=== PATIENT | male | born 1975 | race Caucasian/White ===

== ENCOUNTER 2018-12-06 14:50 | Inpatient (IN) ==
[2018-12-06] MEDS ORDERED: NS 1,000 ML IV ONE ×2 (15:24→16:08)
[2018-12-06 15:29] LABS: BASO# 0.04 X1000 (0.0-0.2); BASO% 0.3 % (0.0-0.8); EOS# 0.05 X1000 (0.0-0.7); EOS% 0.4 % (0.0-10.0); HEMATOCRIT 44.1 % (42.0-52.0); HEMOGLOBIN 15.4 g/dL (14.0-18.0); IMM GRAN# 0.02 X1000 (0.0-0.04); IMM GRAN% 0.2 % (0.0-0.5); LYMPH# 0.79 X1000 (1.2-3.4); LYMPH% 6.6 % (20.5-51.1); MCH 30.6 PG (27-31); MCHC 34.9 g/dL (33-37); MCV 87.5 FL (81-99); MONO# 1.58 X1000 (0.11-0.59); MONO% 13.2 % (1.7-9.3); MPV 9.9 FL (7.4-10.4); NEUT# 9.51 X1000 (1.4-6.5); NEUT% 79.3 % (42.2-75.2); PLT 288 X1000 (130-400); RBC 5.04 XMIL (4.7-6.1); RDW 12.9 % (11.5-14.5); WBC 11.99 X1000 (4.8-10.8)
--- NOTE | 2018-12-06 15:42 | Diag Imaging Result Doc PS360 ---
EXAM: CHEST-2 VIEWS HISTORY: fever TECHNIQUE: Chest two views COMPARISON: 04/01/2014 FINDINGS: The lungs are well expanded. The heart is not enlarged. The vessels are not distended. There are no infiltrates. No pleural effusions. Questionable lung nodules in the upper right lung and lower lungs. These may simply be artifacts. IMPRESSION: Questionable lung nodules. A CT may be beneficial. Electronically signed by Hardeep Barrientos 12/06/2018 3:40 PM
[2018-12-06 15:43] LABS: ALBUMIN 3.5 g/dL (3.5-5.0); CREATININE 2.2 mg/dL (0.7-1.2); POTASSIUM 5.7 mmol/L (3.5-5.1); TOTAL BILIRUBIN 0.3 mg/dL (0.20-1.00)
[2018-12-06 15:56] LABS: BE -0.8 mmoll (-3.0-3.0); BLOOD TYPE ARTERIAL; HCO3-(ACT) 24.2 mmoll (20.0-26.0); METHB 1.1 % (0.0-1.5); O2(CT) 20.6 mL/dL (15.0-23.0); O2HB 93.3 % (95.0-99.0); PCO2(98.6) 37 mmHg (35-45); PO2(98.6) 79 mmHg (60-100); SAMPLE BLOOD; SAO2 97.1 % (95.0-100.0); THB 15.7 g/dL (11.5-17.4); pH(98.6) 7.41 (7.35-7.45)
[2018-12-06 16:04] LABS: ALLEN TEST YES; MODALITY ROOM AIR
[2018-12-06 16:08] LABS: BILIRUBIN URINE NEGATIVE (NEGATIVE); BLOOD URINE NEGATIVE (NEGATIVE); CLARITY CLEAR (CLEAR); COLOR YELLOW; KETONE URINE 1+(Small) mg/dL (NEGATIVE); LEUKOCYTES URINE NEGATIVE (NEGATIVE); NITRITE URINE NEGATIVE (NEGATIVE); PROTEIN URINE NEGATIVE (NEGATIVE); SP GRAVITY URINE 1.005; UROBILINOGEN URINE NORMAL
[2018-12-06] MEDS ORDERED: ROCEPHIN 1 GM in NS 50 ML IV ONE (16:10)
[2018-12-06 16:14] LABS: INFLUENZA A NEGATIVE (NEGATIVE); INFLUENZA B NEGATIVE (NEGATIVE)
[2018-12-06 16:15] LABS: URINE BACTERIA NEGATIVE /HFP; URINE EPITHELIAL CELLS <10 /HPF (<10); URINE RBC <10 /HPF (<10); URINE SOURCE CLEAN CATCH; URINE WBC <10 /HPF (<10)
[2018-12-06] MEDS ORDERED: TYLENOL PO ONE (16:15)
[2018-12-06 17:07] LABS: MAGNESIUM 1.9 mg/dL (1.5-2.7)
[2018-12-06 17:08] LABS: AGAP 16; ALBUMIN 3.7 g/dL (3.5-5.0); ALKALINE PHOSPHATASE 137 U/L (32-122); BUN 13 mg/dL (8-22); CALCIUM 8.7 mg/dL (8.8-10.2); CHLORIDE 90 mmol/L (98-107); COSMO 284; ESTIMATED GFR > 60; GOT 27 U/L (10-34); GPT 42 U/L (10-44); POTASSIUM 4.7 mmol/L (3.5-5.1); SODIUM 131 mmol/L (136-145); TCO2 26 mmol/L (25-35); TOTAL PROTEIN 5.9 g/dL (6.3-8.3)
[2018-12-06 17:11] LABS: GLUCOSE 478 mg/dL (70-104)
[2018-12-06] MEDS ORDERED: HUMULIN R IV ONE (17:13)
[2018-12-06] MEDS ORDERED: HUMULIN R (PARKWAY) ONE (17:15)
[2018-12-06 17:16] LABS: INR 0.83; PROTIME 11.8 Seconds (11.0-16.0)
[2018-12-06 17:17] LABS: PTT 28.7 Seconds (22.3-41.8)
--- NOTE | 2018-12-06 17:49 | PROVIDER DOCUMENTATION ---
This chart was entered by Mara Anderson Scribe, acting as scribe for Vern Castellano CRNP. HPI-General Adult - General Chief Complaint: High Blood Sugar Stated Complaint: HYPERGLYCEMIA Time Seen by Provider: 12/06/18 15:23 Source: patient Allergies/Adverse Reactions: Patient Allergies Allergy/AdvReac Type Severity Reaction Status Date / Time No Known Allergies Allergy Verified 12/06/18 16:49 Home Medications: Home Medication List Medication Instructions Recorded Confirmed Last Taken Type Citalopram [Celexa] 40 mg PO DAILY 04/01/14 12/06/18 03/31/14 History Insulin Novolog 70/30 [Novolog Mix 30 unit SUBQ BID 12/06/18 12/06/18 Unknown History 70/30] Insulin Regular, Human [Novolin R] 100 unit IJ DIRECTED 12/06/18 12/06/18 Unknown History - History of Present Illness -Gen Adult Nature of Presenting Problems: Pt is 43/m presenting to ED w/ high blood sugar. Pt is diabetic and sts that he hasn't checked his sugars today. He woke up today w/ nausea, body aches, fever, frequency Location of Pain/Injury: reports: head, generalized Pain Radiation: reports: no radiation Quality of Pain: reports: aching Severity: reports: mild Onset/Duration: reports: this morning Timing: reports: still present Context/Activities at Onset: reports: none Modifying Factors: improves with: nothing Associated Symptoms: reports: fever/chills, nausea. denies: cough, fatigue, shortness of breath, vomiting Similar Symptoms Previously?: No Recently seen or treated by another doctor?: No - Diabetes Related Context Context: reports: high blood sugar (500 in triage) Review of Systems - Adult - REVIEW OF SYSTEMS - ADULT Constitutional: reports: fever (100.1) Eyes: reports: no symptoms reported. denies: blurred vision, double vision, eye pain Ears, Nose, Mouth & Throat: reports: no symptoms reported. denies: ear pain, throat pain Cardiovascular: reports: no symptoms reported. denies: chest pain, edema Respiratory: reports: no symptoms reported, cough. denies: shortness of breath , wheezing Gastrointestinal: reports: no symptoms reported, nausea. denies: abdominal pain Genitourinary: reports: no symptoms reported Musculoskeletal: reports: no symptoms reported Integumentary: reports: no symptoms reported Neurological: reports: headache/migraines. denies: dizziness/vertigo Psychiatric: reports: no symptoms reported Endocrine: reports: no symptoms reported Hematologic/Lymphatic: reports: no symptoms reported Allergic/Immunologic: reports: no symptoms reported All Other Systems: Reviewed and Negative Past History - Adult - PAST MEDICAL HISTORY-ADULT Review of Records: reports: Old Records Reviewed, Nursing Assessment Review, Medications Reviewed, Social history reviewed & non-contributory. Major Childhood Illnesses: reports: denies history Cardiovascular: reports: denies history Respiratory: reports: denies history Gastrointestinal: reports: denies history Obstetrical/Gynecological: reports: denies history Genitourinary: reports: denies history Musculoskeletal: reports: denies history Neurological: reports: denies history Psychiatric: reports: anxiety Endocrine/Immune: reports: Diabetes Other Conditions: reports: denies history - PRIOR SURGERIES/PROCEDURES Surgical/Procedure History: reports: none - PRIOR HOSPITALIZATIONS Prior Hospitalizations: reports: none - IMMUNIZATION STATUS Childhood Immunizations: See Nurse Assessment Flu Vaccine: See Nurse Assessment - FAMILY HISTORY Family History: reviewed, not pertinent - SOCIAL HISTORY Smoking: cigarettes, greater than 1 pack/day Substance Use: none presently/history of abuse, amphetamines (meth, 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) Alcohol Use Frequency: never Living Situation: family Physical Exam-General - PHYSICAL EXAM-ADULT Initial Vital Signs Reviewed: Yes - CONSTITUTIONAL General Appearance: appears well, alert, no apparent distress, mild distress - EYES Eyes: PERRL/EOMI - HEAD, EARS, NOSE, MOUTH & THROAT HENMT: normocephalic/atraumatic, moist mucous membranes, normal ENT inspection, TMs normal, pharynx normal - NECK Neck: non-tender, full range of motion, supple, normal inspection - RESPIRATORY Respiratory: chest non-tender, lungs clear, normal breath sounds - CARDIOVASCULAR Cardiovascular: regular rate, rhythm - GASTROINTESTINAL (ABDOMEN) Abdominal Exam: normal bowel sounds, non tender, soft - LYMPHATIC Lymphatic: no adenopathy - MUSCULOSKELETAL Back Exam: normal inspection, no CVA tenderness, no vertebral tenderness Extremity: normal range of motion, non-tender, normal gait, normal inspection - SKIN Integumentary: normal color, warm/dry - NEUROLOGIC Neurologic: grossly normal - PSYCHIATRIC Psych/Mental Status: normal mood/affect, normal thought content, normal thought process, oriented x 3 Progress - PLAN OF CARE/RESULTS Progress/Plan/Lab Results: Vital Signs - 8 hr 12/06/18 15:00 Temperature 100.0 F H Pulse Rate 116 H Respiratory Rate 20 Blood Pressure 142/93 O2 Sat by Pulse Oximetry 96 Laboratory Results - last 24 hr 12/06/18 12/06/18 12/06/18 15:04 15:06 15:20 WBC 11.99 H RBC 5.04 Hgb 15.4 Hct 44.1 MCV 87.5 MCH 30.6 MCHC 34.9 RDW Std Deviation 12.9 Plt Count 288 MPV 9.9 Immature Gran % (Auto) 0.2 Neut % (Auto) 79.3 H Lymph % (Auto) 6.6 L [place] % (Auto) 13.2 H Eos % (Auto) 0.4 Baso % (Auto) 0.3 Immature Gran # (Auto) 0.02 Neut # (Auto) 9.51 H Lymph # (Auto) 0.79 L [place] # (Auto) 1.58 H Eos # (Auto) 0.05 Baso # (Auto) 0.04 Specimen Type Sample Site pH pCO2 pO2 HCO3 Base Excess Oxyhemoglobin ABG O2 Sat (Calculated) ABG O2 Saturation ABG Carboxyhemoglobin ABG Methemoglobin Mitchel Test A-a O2 Difference Total Hemoglobin Lactate Blood Gas Modality FiO2 % Sodium Potassium Chloride Carbon Dioxide Anion Gap BUN Creatinine Estimated GFR/1.73 m2 BUN/Creatinine Ratio Glucose POC Glucose 500 H D Calculated Osmolality Calcium Total Bilirubin AST ALT Alkaline Phosphatase Total Protein Albumin Globulin Albumin/Globulin Ratio Urine Color YELLOW Urine Clarity CLEAR Urine pH 7.0 Ur Specific [place] 1.005 Urine Protein NEGATIVE Urine Ketones 1+(Small) A Urine Blood NEGATIVE Urine Nitrite NEGATIVE Urine Bilirubin NEGATIVE Urine Urobilinogen NORMAL Urine WBC NEGATIVE Urine Glucose 3+(500 mg/dL) A 12/06/18 12/06/18 15:20 15:44 WBC RBC Hgb Hct MCV MCH MCHC RDW Std Deviation Plt Count MPV Immature Gran % (Auto) Neut % (Auto) Lymph % (Auto) [place] % (Auto) Eos % (Auto) Baso % (Auto) Immature Gran # (Auto) Neut # (Auto) Lymph # (Auto) [place] # (Auto) Eos # (Auto) Baso # (Auto) Specimen Type ARTERIAL Sample Site L RADIAL pH 7.41 pCO2 37 pO2 79 HCO3 24.2 Base Excess -0.8 Oxyhemoglobin 93.3 L ABG O2 Sat (Calculated) 20.6 ABG O2 Saturation 97.1 ABG Carboxyhemoglobin 2.80 H ABG Methemoglobin 1.1 Mitchel Test YES A-a O2 Difference 24.0 Total Hemoglobin 15.7 Lactate 5.40 H* Blood Gas Modality ROOM AIR FiO2 % 21.0 Sodium 135 L Potassium 5.7 H Chloride 102 Carbon Dioxide 21 L Anion Gap 12 BUN 50 H Creatinine 2.2 H Estimated GFR/1.73 m2 33 BUN/Creatinine Ratio 23 Glucose 109 H POC Glucose Calculated Osmolality 284 Calcium 9.0 Total Bilirubin 0.30 AST 21 ALT 17 Alkaline Phosphatase 83 Total Protein 7.0 Albumin 3.5 Globulin 4.0 Albumin/Globulin Ratio 1.0 Urine Color Urine Clarity Urine pH Ur Specific [place] Urine Protein Urine Ketones Urine Blood Urine Nitrite Urine Bilirubin Urine Urobilinogen Urine WBC Urine Glucose Orders Category Date Time Status CHEST-2 VIEWS [RAD] Stat Exams 12/06/18 15:24 Completed ABG [RESP] Routine Lab 12/06/18 15:44 Completed CBC WITH DIFF [HEME] Stat Lab 12/06/18 15:20 Completed CMP [COMPREHENSIVE METABOLIC PANEL] [CHEM] Stat Lab 12/06/18 15:55 Uncollected COMPREHENSIVE METABOLIC PANEL [CHEM] Stat Lab 12/06/18 15:20 Completed Flu [INFLUENZA SCREEN PL] Stat Lab 12/06/18 15:05 Received UA NIMS W/REFLEX CULT PL [URINALYSIS] Stat Lab 12/06/18 15:06 Results 0.9% Sodium Chloride Inj [Ns] 1,000 ml Med 12/06/18 15:24 Active IV 999 mls/hr 0.9% Sodium Chloride Inj [Ns] 1,000 ml Med 12/06/18 16:08 Active IV 999 mls/hr EKG [EKG] Stat Ther 12/06/18 15:28 Ordered Result Diagrams: 12/06/18 15:20 12/06/18 16:30 - REASSESSMENT Reassessment #1 Time Reassessed: 15:55 (Initial FSBS > 500 and lab glucose of 109 do not match. Will reorder chemistry to confirm glucose) Reassessment #2 Time Reassessed: 17:40 (updated pt and made aware of admission status. Pt agrees with admission.) - EKG 1 Time of EKG reading by physician:: 17:38 EKG Read and Signed by:: Fernando Cortez EKG Interpretation (*Must complete 3 of following elements*): Normal Rate: 104 Rhythm: Sinus tachycardia - CONSULTS/PCP/HOSPITALIST Notification #1 *Consult/PCP/Hospitalist*: Dr Lawton, hospitalist Time Discussed: 17:41 (possible admission) Consult Disposition: Will see in ED, Admit Departure - Departure Date of Disposition Decision: 12/06/18 Time of Disposition Decision: 17:23 DIAGNOSIS: Hyperglycemia Sepsis Qualifiers: Sepsis type: sepsis due to unspecified organism Qualified Code(s): A41.9 - Sepsis, unspecified organism Disposition: ADMITTED INPATIENT 09 Certified Medical Emergency: Emergent Condition: Fair Referrals and Follow-Ups: Devon Suarez DO [Primary Care Provider] - - Critical Care Note This patient required my direct & personal management of CC.: No Attestation - Physician/ DEION Attestation Patient care was provided by Advanced Practice Provider:: Yes Advanced Practice Provider:: Vern Castellano Advanced Practice Provider documentation review:: The Mid-level provider documentation, treatment plan and medical decision making was reviewed by the physician who agrees with all treatment and medical decision making by the MLP. The physician spent face to face time with patient:: No Advanced Practice Provider documentation review:: Supervising physician onsite and consulted in the evaluation and care of this patient. The physician did not have a face to face encounter with the patient. This chart was documented by the indicated scribe, (Mara Anderson Scribe) and accurately reflects the services I performed and decisions made by me, Vern Castellano CRNP, as attested by the provider's signature.
--- NOTE | 2018-12-06 17:59 | EKG Report ---
Test Performed on : 12/06/2018 5:38:13 PM Test Reason : CP Blood Pressure : / mmHG Vent. Rate : 104 BPM Atrial Rate : 104 BPM P-R Int : 130 ms QRS Dur : 080 ms QT Int : 308 ms P-R-T Axes : 070 -15 048 degrees QTc Int : 405 ms Sinus tachycardia. Otherwise normal ECG When compared with ECG of 01-APR-2014 04:39, No significant change was found Unconfirmed Result
[2018-12-06] MEDS ORDERED: ZOFRAN IV PRN (19:13)
[2018-12-06] MEDS ORDERED: NICODERM PATCH TD PRN (20:51)
[2018-12-06] MEDS: ROBITUSSIN-DM PO PRN (21:27)
[2018-12-06] MEDS: HUMALOG (PARKWAY) SUBQ SCH (22:23)
--- NOTE | 2018-12-06 23:44 | HISTORY AND PHYSICAL ---
ADDENDUM: Patient seen and examined by myself. Full note dictated and discussed with nurse practitioner. The patient is a 43-year-old male who presented to the ER with a fever and an elevated blood sugar. We will admit him to the hospital, treat in the usual fashion, place on sliding scale insulin, and will follow. cc: Duncan Landin MD
--- NOTE | 2018-12-07 00:11 | HISTORY AND PHYSICAL ---
CHIEF COMPLAINT: Elevated blood sugar. HISTORY OF PRESENT ILLNESS: The patient is a 43-year-old male who has a known history of diabetes, currently takes NovoLog. He states on sliding scale at home. States he has not checked his blood sugars in a day or 2. He awoke this morning, did not feel well. Had nausea, vomiting, abdominal pain, myalgias, and increased urinary frequency. Checked his blood sugar, and it was elevated. ALLERGIES: No known drug allergies. MEDICATIONS: Celexa 40, NovoLog 70/30, 30 units twice a day, Humulin R, on a sliding scale. REVIEW OF SYSTEMS: The patient notes that he had a low-grade fever at 100.1. Denies any headaches, change in vision, focalized numbness, tingling, or weakness. Denies any dysuria, does have urinary frequency. Denies hesitancy. Has some nausea, but denies any real abdominal pain, constipation, melena, hematochezia. Does state that he has a cough, but denies any current shortness of breath, wheezing, or dyspnea on exertion. PAST MEDICAL HISTORY: Diabetes, currently insulin-requiring. FAMILY HISTORY: Positive for diabetes. SOCIAL HISTORY: The patient smokes a pack a day. 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 PHYSICAL EXAMINATION: VITAL SIGNS: Temperature 100, pulse 116, respiratory rate 20, blood pressure 142/93, saturation 96% on room air. GENERAL: Patient is pleasant to talk with. He is currently in no respiratory distress. HEENT: Normocephalic. NECK: Supple. CARDIOVASCULAR: Regular rate. No murmurs. CHEST: Clear, nonlabored. ABDOMEN: Soft. Diffusely mildly tender. EXTREMITIES: Moves all extremities. NEUROLOGIC: No focal neurological changes. ASSESSMENT: 1. Diabetes, with hyperglycemia. 2. Hyponatremia. Corrects to normal. 3. Diabetes type 1, with hyperglycemia. PLAN: We will continue patient in the hospital, place on sliding scale insulin, advance diet as tolerated. cc: Duncan Landin MD
[2018-12-07] MEDS: TYLENOL PO PRN ×2 (01:10→13:49)
[2018-12-07] MEDS: HUMALOG (PARKWAY) SUBQ SCH ×4 (06:03→21:15)
[2018-12-07 06:55] LABS: HEMATOCRIT 41.7 % (42.0-52.0); HEMOGLOBIN 14.3 g/dL (14.0-18.0); MCH 30.1 PG (27-31); MCHC 34.3 g/dL (33-37); MCV 87.8 FL (81-99); MPV 9.7 FL (7.4-10.4); RBC 4.75 XMIL (4.7-6.1); WBC 5.55 X1000 (4.8-10.8)
[2018-12-07 07:14] LABS: AGAP 10; ALBUMIN 3.2 g/dL (3.5-5.0); ALKALINE PHOSPHATASE 116 U/L (32-122); BUN 11 mg/dL (8-22); CALCIUM 8.3 mg/dL (8.8-10.2); CHLORIDE 100 mmol/L (98-107); COSMO 286; CREATININE 0.7 mg/dL (0.7-1.2); ESTIMATED GFR > 60; GLUCOSE 299 mg/dL (70-104); GOT 25 U/L (10-34); GPT 35 U/L (10-44); POTASSIUM 4.1 mmol/L (3.5-5.1); SODIUM 138 mmol/L (136-145); TCO2 29 mmol/L (25-35); TOTAL PROTEIN 5.6 g/dL (6.3-8.3)
[2018-12-07] MEDS: HUMULIN 70/30 (PARKWAY) SUBQ SCH ×2 (09:13→16:59)
[2018-12-07] MEDS: ROBITUSSIN-DM PO PRN ×2 (13:49→20:15)
[2018-12-07] MEDS ORDERED: ROCEPHIN 1 GM in NS 50 ML IV SCH (16:00)
[2018-12-07] MEDS ORDERED: CELEXA PO SCH (21:00)
--- NOTE | 2018-12-07 23:22 | PROGRESS NOTE ---
DATE: 12/07/2018 SUBJECTIVE: Patient is a 43-year-old male who notes he still does not feel well, still having abdominal pain, occasional nausea, still having fever. OBJECTIVE/PHYSICAL EXAMINATION: Vital Signs: T-max 101.4 degrees, temperature current 97.8, pulse 81, blood pressure 119/82. General: Patient is awake, alert, currently in no distress. He is in no respiratory distress. He is still somewhat ill-appearing. HEENT: Normocephalic. Neck: Supple. Cardiovascular: Regular rate. Chest: Clear. Abdomen: Soft, nondistended. Extremities: Moves all extremities. ASSESSMENT: 1. Diabetes with hyperglycemia. 2. Hyponatremia. 3. Fever. PLAN: We will continue patient in the hospital today. Continue to follow his blood sugars. Continue sliding scale insulin, Rocephin, and will follow. cc: Duncan Landin MD
[2018-12-08 05:15] VITALS: BP 114/61
[2018-12-08] MEDS: HUMALOG (PARKWAY) SUBQ SCH (06:26)
[2018-12-08] MEDS: TYLENOL PO PRN (06:33)
--- NOTE | 2018-12-08 08:05 | Diag Imaging Result Doc PS360 ---
EXAM: CT THORAX W/CONTRAST - 12/08/2018 HISTORY: pneumonia TECHNIQUE: CT thorax with intravenous contrast COMPARISON: 12/06/2018 chest two views FINDINGS: There are approximately six scattered noncalcified pulmonary nodules. The largest of these is located at the right lower lobe and measures 1.6 cm. The second largest lesion is located in the left lower lobe measures 1.4 cm. This left lower lobe lesion has a tiny air-containing cavity. Lesions are not cavitary. There is no consolidation, pleural effusion, or pneumothorax identified. There are no substantially enlarged mediastinal or hilar lymph nodes identified. There is a tiny amount of pericardial fluid. IMPRESSION: Scattered noncalcified pulmonary nodules. These may relate to atypical inflammatory/infectious process. Metastatic disease may also be a consideration. No consolidation. This exam was performed using automated exposure control, adjustment of mA or kV according to patient size, and/or use of iterative reconstruction technique. Electronically signed by Bob Boyer 12/08/2018 8:03 AM
[2018-12-08] MEDS: HUMULIN 70/30 (PARKWAY) SUBQ SCH (09:21)
--- NOTE | 2018-12-08 20:29 | DISCHARGE SUMMARY ---
ADMISSION DATE: 12/06/2018 DISCHARGE DATE: 12/08/2018 PRIMARY CARE PHYSICIAN: Dr. Devon Suarez. DIAGNOSES: 1. Diabetes mellitus with hyperglycemia. 2. Hyponatremia. 3. Fever. DIAGNOSTICS: 1. Chest x-ray revealed questionable lung nodules. There are no infiltrates, no pleural effusions. Vessels are not distended. CT of the chest is recommended. 2. CT of the chest with IV contrast revealed small noncalcified pulmonary nodules. These may relate to atypical inflammatory process. Metastatic disease may also be a consideration. 3. Urine culture revealed no growth. 4. Blood cultures are pending. HOSPITAL COURSE: Mr. Melendez presented to the emergency room complaining of elevated blood sugar. He had not checked his blood sugars in a day or two, but he woke up prior to coming to the emergency room. He stated he did not feel well. He had nausea, vomiting, abdominal pain, myalgias and increased frequency. He was found to have a blood sugar of 478, along with a lactate of 5 and he had an elevated white blood cell count. He received IV hydration as well as antibiotic coverage of Rocephin. Today his white count is decreased, it is down to 5.5. He has remained afebrile since admission. Thankfully today he feels better and is ready to be discharged. DISCHARGE PHYSICAL EXAMINATION: Vital Signs: Blood pressure is 114/61, heart rate of 77, respirations are 18, temperature is 98.7 oral with room air sats 98-100%. Cardiovascular: Regular rate and rhythm. S1 and S2 are appreciated. He has no lower extremity edema with peripheral pulses palpable x 4 extremities. Pulmonary: Breath sounds are clear with no increased work of breathing noted. Chest: Rises and falls symmetrically with respiration. Gastrointestinal: Abdomen is soft, nontender, nondistended with bowel sounds in all 4 quadrants. Skin: Warm and dry. Neurologic: He is alert oriented x 3. DISCHARGE MEDICATIONS: Celexa 40 mg p.o. at bedtime, NovoLog 70/30 with 30 units subcu b.i.d.. Novolin R as directed, Omnicef 300 mg p.o. b.i.d. for 5 days, Robitussin DM 5 mL q.4 hours p.r.n. FOLLOWUP: 1. He is to follow up with his primary care physician, Dr. Suarez. Appointment has been made for 12/13/2018 at 11:20 a.m. 2. He has also been encouraged to follow up with our medical technologist prn. 3. He is being discharged home in stable condition with family members. 4. He has been instructed to call to be seen sooner or return to the ER for any chest pain, palpitations, syncope, dizziness, temperature greater than 101, PND, orthopnea, any nausea, vomiting, diarrhea, constipation, black or bloody vomitus or stools, or for any questions or concerns that he may have. Dictated by HERI Wyatt for Duncan Landin MD This chart was documented by, HERI Wyatt and accurately reflects the services performed, treatment plan and medical decisions as attested by the providers signature Duncan Landin MD. cc: HERI Wyatt MD [facility],
--- NOTE | 2018-12-09 02:34 | DISCHARGE SUMMARY ---
ADMISSION DATE: 12/06/2018 DISCHARGE DATE: 12/08/2018 ADDENDUM: Patient seen and examined by myself. Full note dictated and discussed with nurse practitioner. On discharge, the patient notes he is feeling much better. His CT chest was negative. He has been afebrile for the past 2 days. Blood sugars are much improved. He is tolerating regular diet. Flu was negative and therefore he will be discharged home. cc: Duncan Landin MD
== END 2018-12-08 10:05 | disposition home or self-care (01) | DRG 638 ==
LOC: P.ED 14:50 → P.MEDSURG 19:35
PROVIDERS: ATTEND Family Medicine
CPT/HCPCS: 71020; 71046; 71260; 80053; 81001; 82550; 82805; 82948; 83605; 83735; 84443; 84484; 85025; 85027; 85610; 85730; 87040; 87088; 87275; 87276; 87804; 93005; 96361; 96365; 99285; A9270; J0696; J1815; J7030; Q9967; XXXXX

== ENCOUNTER 2019-04-04 19:07 | Inpatient (IN) ==
[2019-04-04] MEDS ORDERED: VANCOMYCIN 1 GM/NS 1 GM/250 ML IVPB IV ONE (19:17)
--- NOTE | 2019-04-04 19:21 | PROVIDER DOCUMENTATION ---
HPI-General Adult - General Chief Complaint: General Adult Stated Complaint: allergic reaction Time Seen by Provider: 04/04/19 19:16 Source: patient Allergies/Adverse Reactions: Patient Allergies Allergy/AdvReac Type Severity Reaction Status Date / Time No Known Allergies Allergy Verified 04/04/19 20:34 Home Medications: Home Medication List Medication Instructions Recorded Confirmed Last Taken Type Citalopram [Celexa] 40 mg PO HS 04/01/14 04/04/19 03/31/14 History Insulin Novolog 70/30 [Novolog Mix 60 unit SUBQ BID 12/06/18 04/04/19 Unknown History 70/30] Insulin Regular, Human [Novolin R] 100 unit SQ DIRECTED 12/06/18 04/04/19 Unknown History - History of Present Illness -Gen Adult Nature of Presenting Problems: Pt. is 43 yom that presents with c/o right side facial swelling for several da ys. He reports multiple bad teeth and states he had a sore on the inside of the right nare before the swelling began. He denies any other complaints. Location of Pain/Injury: reports: face. denies: none, head, mouth, neck, chest, upper extremity, hand(s), abdomen, back, pelvis, genitalia, lower extremity, feet, upper body, lower body, generalized, other Pain Radiation: reports: no radiation. denies: arm(s), back, buttocks, chest, epigastric, feet, groin, jaw, flank (L), legs (lower), LLQ, LUQ, neck, periumbilical, flank (R), RLQ, RUQ, shoulder(s), scapula, scrotal, sternal notch, suprapubic, legs (upper), urethral, vaginal, other Quality of Pain: reports: aching, pressure, tightness. denies: burning, fullness, indigestion, stabbing, throbbing Severity: reports: moderate. denies: mild, severe Onset/Duration: reports: gradual, 3 days ago Timing: reports: still present. denies: improving, constant, changing over time Context/Activities at Onset: reports: none. denies: light activity, moderate activity, vigorous activity, recent emotional stress, recent physical stress, recent trauma history, possible bad food, cold exposure, eating, out of country travel, rest, sleep, sexual activity, other Modifying Factors: improves with: nothing Associated Symptoms: reports: EENT symptoms. denies: denies symptoms, anxiety, arm pain, back/neck pain, chest pain, constipation, cough, diaphoresis, diarrhea, dizziness, fatigue, fever/chills, genitourinary problems, headaches, heartburn, joint pain, loss of appetite, malaise, muscle aches, sinus congestion/drainage, nausea, rash, seizure, shortness of breath, sensory/motor loss, pain with inspiration, swelling/mass in abdomen, syncope, vomiting, weakness, trouble walking, other Similar Symptoms Previously?: Yes Recently seen or treated by another doctor?: No Review of Systems - Adult - REVIEW OF SYSTEMS - ADULT Constitutional: reports: no symptoms reported Eyes: reports: no symptoms reported Ears, Nose, Mouth & Throat: reports: see HPI, mouth/dental pain. denies: ear pain, nose pain, throat swelling Cardiovascular: reports: no symptoms reported Respiratory: reports: no symptoms reported Gastrointestinal: reports: no symptoms reported Genitourinary: reports: no symptoms reported Musculoskeletal: reports: no symptoms reported Integumentary: reports: see HPI, other (Swelling to right face). denies: hair loss, itching, rash Neurological: reports: no symptoms reported Psychiatric: reports: no symptoms reported Past History - Adult - PAST MEDICAL HISTORY-ADULT Review of Records: reports: Old Records Reviewed, Nursing Assessment Review, Medications Reviewed, Social history reviewed & non-contributory. Major Childhood Illnesses: reports: denies history Cardiovascular: reports: denies history Respiratory: reports: denies history Gastrointestinal: reports: denies history Obstetrical/Gynecological: reports: denies history Genitourinary: reports: denies history Musculoskeletal: reports: denies history Neurological: reports: denies history Psychiatric: reports: anxiety Endocrine/Immune: reports: Diabetes Other Conditions: reports: denies history - PRIOR SURGERIES/PROCEDURES Surgical/Procedure History: reports: none - PRIOR HOSPITALIZATIONS Prior Hospitalizations: reports: none - IMMUNIZATION STATUS Childhood Immunizations: See Nurse Assessment Flu Vaccine: See Nurse Assessment - FAMILY HISTORY Family History: reviewed, not pertinent - SOCIAL HISTORY Smoking: cigarettes, greater than 1 pack/day Provider spent 3-5 mins advising pt. on dangers of tobacco.: Discussed manners to quit use, and f/u contacts for add'l counseling. Physical Exam-General - PHYSICAL EXAM-ADULT Initial Vital Signs Reviewed: Yes - CONSTITUTIONAL General Appearance: alert, no apparent distress, thin. negative: anxious, obtunded, combative - EYES Eyes: PERRL/EOMI, pink conjunctivae. negative: scleral icterus, subconjunctival hemorrhage - HEAD, EARS, NOSE, MOUTH & THROAT HENMT: moist mucous membranes, angioedema (There is significant swelling to the right face and into the periorbital right eye.). negative: frontal tenderness, maxillary tenderness - NECK Neck: non-tender, full range of motion, supple, normal inspection. negative: lymphadenopathy, trachial deviation, thyromegaly - RESPIRATORY Respiratory: lungs clear, normal breath sounds. negative: crackles, rales, rhonchi, stridor, wheezing - CARDIOVASCULAR Cardiovascular: normal peripheral pulses, regular rate, rhythm, no edema, no JVD . negative: extra beats, friction rub, irregularly irregular - GASTROINTESTINAL (ABDOMEN) Abdominal Exam: normal bowel sounds, non tender, soft - LYMPHATIC Lymphatic: no adenopathy. negative: axilla node tender, cervical node tenderness - MUSCULOSKELETAL Back Exam: normal inspection, no CVA tenderness, no vertebral tenderness Extremity: normal range of motion, non-tender, normal gait, normal inspection Peripheral Pulses: radial (R): 2+, radial (L): 2+ - SKIN Integumentary: erythema (The right side of the face), swelling (Right side of the face), tenderness (Right side of the face). negative: cyanosis, jaundice, pallor - NEUROLOGIC Neurologic: grossly normal, no motor/sensory deficits - PSYCHIATRIC Psych/Mental Status: normal mood/affect, normal thought content, normal thought process, oriented x 3. negative: anxious, paranoid, tearful Progress - PLAN OF CARE/RESULTS Progress/Plan/Lab Results: Vital Signs - 8 hr 04/04/19 19:11 Temperature 98.1 F Pulse Rate 105 H Respiratory Rate 20 Blood Pressure 165/98 O2 Sat by Pulse Oximetry 98 Orders Category Date Time Status Saline Loc NOW Care 04/04/19 19:[address] MAXILLOFACIAL(SINUS) W/O CO [CT] Stat Exams 04/04/19 19:13 Ordered BLOOD CULTURE [BLDCUL] Stat Lab 04/04/19 19:17 Uncollected CBC WITH ELECTRONIC DIFF [HEME] Stat Lab 04/04/19 19:17 Uncollected COMPREHENSIVE METABOLIC PANEL [CHEM] Stat Lab 04/04/19 19:17 Uncollected LACTATE, PLASMA [CHEM] Stat Lab 04/04/19 19:17 Uncollected Vancomycin 1 gm IV Now Med 04/04/19 19:17 Ordered Vancomycin 1 gm/Ns 1 gm in 250 ml IV NOW Result Diagrams: 04/04/19 19:29 04/04/19 19:29 - CONSULTS/PCP/HOSPITALIST Notification #1 *Consult/PCP/Hospitalist*: Dr. Mills Time Discussed: 20:46 (ENT consult) Consult Disposition: Will see in ED #2 Consult: Dr. Man Time Discussed: 20:47 Consult Disposition: Admit (consult oral surgeon) - CHANGE OF SHIFT REPORT (ED Provider) 1 Report Given and Care Transferred to:: Dr Jacques Time of Transfer: 20:35 Items Pending: Labs (cmp) Departure - Departure Date of Disposition Decision: 04/04/19 Time of Disposition Decision: 20:48 DIAGNOSIS: Hyperglycemia, Facial abscess Sepsis Qualifiers: Sepsis type: sepsis due to unspecified organism Qualified Code(s): A41.9 - Sep sis, unspecified organism Disposition: ADMITTED INPATIENT 09 Certified Medical Emergency: Emergent Condition: Stable Referrals and Follow-Ups: Devon Suarez, [Primary Care Provider] - - Critical Care Note This patient required my direct & personal management of CC.: No Attestation - Physician/ DEION Attestation Patient care was provided by Advanced Practice Provider:: Yes Advanced Practice Provider:: Chriss Grullon Advanced Practice Provider documentation review:: The Mid-level provider documentation, treatment plan and medical decision making was reviewed by the physician who agrees with all treatment and medical decision making by the MLP. The physician spent face to face time with patient:: Yes Advanced Practice Provider documentation review:: Supervising physician onsite and consulted in the evaluation and care of this patient. The physician did have a face to face encounter with the patient.
--- NOTE | 2019-04-04 19:52 | Diag Imaging Result Doc PS360 ---
CT MAXILLOFACIAL(SINUS) W/O CO - 04/04/2019 INDICATION: FACIAL EDEMA TECHNIQUE: COMPARISON: None FINDINGS: At the right side of face, extending from the orbit down to the submandibular space, there is significant soft tissue swelling. This is worst involving the right-sided angle of the mouth. In this area, there is a focal density or collection measuring 3 x 2.2 cm in craniocaudal and lateral dimensions. This is likely a small abscess, but this is difficult to ascertain without contrast. No fractures. There is overall very poor dentition with multiple dental cavities and some fractured off teeth. IMPRESSION: Extensive cellulitis at the right side of the face. Centered at the right angle of the mouth, there is a superficial soft tissue or fluid density collection which may indicate a small abscess. Indeterminate without intravenous contrast administration. Electronically signed by Tony Barbour 04/04/2019 7:50 PM
[2019-04-04 19:56] LABS: BASO# 0.03 X1000 (0.0-0.2); BASO% 0.1 % (0.0-0.8); EOS# 0.24 X1000 (0.0-0.7); EOS% 1.1 % (0.0-10.0); HEMOGLOBIN 13.8 g/dL (14.0-18.0); IMM GRAN# 0.08 X1000 (0.0-0.04); IMM GRAN% 0.4 % (0.0-0.5); LYMPH# 2.01 X1000 (1.2-3.4); LYMPH% 9.5 % (20.5-51.1); MCH 30.4 PG (27-31); MCHC 35.4 g/dL (33-37); MCV 85.9 FL (81-99); MONO# 2.41 X1000 (0.11-0.59); MONO% 11.4 % (1.7-9.3); MPV 9.9 FL (7.4-10.4); NEUT# 16.29 X1000 (1.4-6.5); NEUT% 77.5 % (42.2-75.2); PLT 374 X1000 (130-400); RBC 4.54 XMIL (4.7-6.1); RDW 12.8 % (11.5-14.5); WBC 21.06 X1000 (4.8-10.8)
[2019-04-04 20:37] LABS: AGAP 14; ALB/GLOB RATIO 1.6; ALKALINE PHOSPHATASE 166 U/L (32-122); BUN 16 mg/dL (8-22); CALCIUM 8.8 mg/dL (8.8-10.2); CHLORIDE 91 mmol/L (98-107); COSMO 290; CREATININE 0.9 mg/dL (0.7-1.2); ESTIMATED GFR > 60; GLUCOSE 573 mg/dL (70-104); GOT 27 U/L (10-34); GPT 31 U/L (10-44); POTASSIUM 4.4 mmol/L (3.5-5.1); SODIUM 131 mmol/L (136-145); TCO2 26 mmol/L (25-35); TOTAL BILIRUBIN 0.23 mg/dL (0.20-1.00); TOTAL PROTEIN 6.5 g/dL (6.3-8.3)
[2019-04-04] MEDS ORDERED: NS 1,000 ML IV ONE (20:38)
[2019-04-04] MEDS ORDERED: HUMULIN R IV ONE (20:39)
[2019-04-04] MEDS ORDERED: MORPHINE IV ONE (20:51)
[2019-04-04] MEDS ORDERED: ZOFRAN IV ONE (20:52)
--- NOTE | 2019-04-04 22:12 | Diag Imaging Result Doc PS360 ---
CT MAXILLOFACIAL(SINUS) W/CON - 04/04/2019 INDICATION: possible abscess TECHNIQUE: CT facial bones with intravenous contrast. COMPARISON: Previous noncontrast CT FINDINGS: After Ministry intravenous contrast, there is actually not really any fluid density within the very swollen right cheek and facial tissues. This all appears to be heterogeneous ill-defined soft tissue density. No additional findings otherwise. IMPRESSION: No abscess. Significant inflammatory edema throughout the right face consistent with extremely advanced cellulitis. Electronically signed by Tony Barbour 04/04/2019 10:10 PM
[2019-04-04] MEDS ORDERED: VANCOMYCIN IV PER PHARMACY MISC SCH ×2 (23:52)
[2019-04-04] MEDS ORDERED: ZOFRAN IV PRN (23:52)
[2019-04-05] MEDS ORDERED: VANCOMYCIN 1,250 MG in NS 250 ML IV ONE (01:00)
[2019-04-05] MEDS: MORPHINE IV PRN ×4 (01:59→20:01)
[2019-04-05] MEDS: NS 1,000 ML IV SCH ×4 (03:14→20:02)
[2019-04-05 06:13] LABS: BASO# 0.04 X1000 (0.0-0.2); BASO% 0.2 % (0.0-0.8); EOS# 0.41 X1000 (0.0-0.7); HEMATOCRIT 39.6 % (42.0-52.0); HEMOGLOBIN 13.7 g/dL (14.0-18.0); IMM GRAN# 0.05 X1000 (0.0-0.04); IMM GRAN% 0.2 % (0.0-0.5); LYMPH# 2.07 X1000 (1.2-3.4); LYMPH% 10.1 % (20.5-51.1); MCH 30.6 PG (27-31); MCHC 34.6 g/dL (33-37); MCV 88.4 FL (81-99); MONO# 2.01 X1000 (0.11-0.59); MONO% 9.8 % (1.7-9.3); MPV 9.9 FL (7.4-10.4); NEUT# 15.93 X1000 (1.4-6.5); NEUT% 77.7 % (42.2-75.2); PLT 375 X1000 (130-400); RBC 4.48 XMIL (4.7-6.1); RDW 13.1 % (11.5-14.5); WBC 20.51 X1000 (4.8-10.8)
[2019-04-05 06:28] LABS: AGAP 17; BUN 11 mg/dL (8-22); CALCIUM 8.4 mg/dL (8.8-10.2); CHLORIDE 93 mmol/L (98-107); COSMO 282; CREATININE 0.7 mg/dL (0.7-1.2); ESTIMATED GFR > 60; GLUCOSE 348 mg/dL (70-104); POTASSIUM 4.5 mmol/L (3.5-5.1); SODIUM 134 mmol/L (136-145); TCO2 24 mmol/L (25-35)
[2019-04-05] MEDS ORDERED: HUMULIN R SUBQ SCH (07:00)
[2019-04-05] MEDS ORDERED: NOVOLOG MIX 70/30 SUBQ SCH (09:45)
[2019-04-05] MEDS: HUMALOG SUBQ SCH ×3 (11:42→21:34)
[2019-04-05] MEDS: VANCOMYCIN 1,650 MG in NS 250 ML IV SCH (14:00)
[2019-04-05] MEDS: CLINDAMYCIN 900 MG/D5W 900 MG/50 ML IVPB IV SCH (14:53)
--- NOTE | 2019-04-05 14:53 | HISTORY AND PHYSICAL ---
PRIMARY CARE PHYSICIAN: Dr. Suarez CHIEF COMPLAINT: Right face swelling. HISTORY OF PRESENT ILLNESS: This is a 43-year-old with history of diabetes mellitus type 2, who presented to the emergency department with several days history of worsening edema and pain in his right face. He states his tooth broke off or so, and he developed these symptoms. The patient was evaluated in the emergency department. He had a maxillofacial imaging done which did show extensive cellulitis in the right face region. Due to his presenting symptoms, he will need admission for further management. At the time of my examination, he denied any headache, fever, chills, chest pain, shortness of breath, hemoptysis, weight changes but complained of right face pain. PAST MEDICAL HISTORY: Diabetes mellitus type 2. PAST SURGICAL HISTORY: Right knee surgery. ALLERGIES: No known drug allergies. CURRENT MEDICATIONS: Celexa 40 mg p.o. nightly at bedtime, NovoLog 70/30 sixty units subcutaneously b.i.d., Novolin R as directed. SOCIAL HISTORY: A 20-pack year history of smoking. Denies any history of alcohol use. 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 FAMILY HISTORY: No history of coronary artery disease. REVIEW OF SYSTEMS: A 14-point review of systems unless as stated in HPI, is negative. PHYSICAL EXAMINATION: GENERAL: A cooperative, friendly male, resting comfortably now. VITAL SIGNS: Temperature is 98.1, pulse 105, respirations 20, blood pressure 165/98. HEENT: Atraumatic and normocephalic. Extraocular movements were intact. There is moderate amount of edema and tenderness in his right face. NECK: No masses. CHEST: Clear to auscultation. CARDIOVASCULAR: Regular rate and rhythm. ABDOMEN: Soft. Positive bowel sounds. EXTREMITIES: No edema. NEUROLOGICAL: He is awake, alert and oriented x3. : No bladder distention. SKIN: Warm. DIAGNOSTIC DATA: WBC is 21.06, hemoglobin 13.8, hematocrit 39.0, platelets 374. Sodium is 131, potassium 4.4, chloride 91, CO2 is 26, BUN is 16, creatinine 0.9, glucose 573. ASSESSMENT: A 43-year-old male with a history of diabetes mellitus type 2, who presented to the emergency department with several days history of worsening right face pain. He states apparently his tooth broke, and then he developed these symptoms. He was evaluated in the emergency department. He had imaging done which was consistent with extensive cellulitis. Subsequently he will need admission for further management. IMPRESSION: 1. Right facial cellulitis. 2. Diabetes mellitus type 2. PLAN: 1. We will admit the patient to the Medical Floor. 2. We will start the patient on IV antibiotics. 3. We will give him adequate pain control. 4. We will continue with IV fluids. 5. We will put the patient on a moderate sliding scale insulin regimen. 6. Continue with DVT prophylaxis with SCDs. 7. We will continue to follow and reassess. Further recommendations based on the patient's clinical course. cc: Sanchez Mills MD
[2019-04-05] MEDS: NOVOLOG MIX 70/30 SUBQ SCH (16:46)
[2019-04-05] MEDS: CELEXA PO SCH (20:01)
[2019-04-05] MEDS: ZOSYN 3.375 GM in NS 50 ML IV SCH (20:02)
[2019-04-06] MEDS: MORPHINE IV PRN ×4 (00:14→20:26)
[2019-04-06] MEDS: CLINDAMYCIN 900 MG/D5W 900 MG/50 ML IVPB IV SCH ×3 (00:14→20:27)
[2019-04-06] MEDS: VANCOMYCIN 1,650 MG in NS 250 ML IV SCH (01:36)
[2019-04-06] MEDS: ZOSYN 3.375 GM in NS 50 ML IV SCH ×4 (04:07→20:27)
[2019-04-06 05:49] LABS: BASO# 0.02 X1000 (0.0-0.2); BASO% 0.1 % (0.0-0.8); EOS# 0.41 X1000 (0.0-0.7); EOS% 2.6 % (0.0-10.0); HEMATOCRIT 40.3 % (42.0-52.0); HEMOGLOBIN 13.6 g/dL (14.0-18.0); IMM GRAN# 0.04 X1000 (0.0-0.04); IMM GRAN% 0.3 % (0.0-0.5); LYMPH# 1.55 X1000 (1.2-3.4); LYMPH% 9.7 % (20.5-51.1); MCH 29.9 PG (27-31); MCHC 33.7 g/dL (33-37); MCV 88.6 FL (81-99); MONO# 2.11 X1000 (0.11-0.59); MONO% 13.2 % (1.7-9.3); MPV 9.4 FL (7.4-10.4); NEUT# 11.83 X1000 (1.4-6.5); NEUT% 74.1 % (42.2-75.2); PLT 394 X1000 (130-400); RBC 4.55 XMIL (4.7-6.1); WBC 15.96 X1000 (4.8-10.8)
[2019-04-06] MEDS: HUMALOG SUBQ SCH ×5 (06:40→21:44)
[2019-04-06] MEDS: NOVOLOG MIX 70/30 SUBQ SCH ×2 (06:41→16:42)
[2019-04-06 06:43] LABS: AGAP 7; BUN 6 mg/dL (8-22); CALCIUM 8.3 mg/dL (8.8-10.2); CHLORIDE 98 mmol/L (98-107); COSMO 275; CREATININE 0.6 mg/dL (0.7-1.2); ESTIMATED GFR > 60; GLUCOSE 192 mg/dL (70-104); POTASSIUM 3.3 mmol/L (3.5-5.1); SODIUM 136 mmol/L (136-145); TCO2 31 mmol/L (25-35)
[2019-04-06 11:55] LABS: HEMOGLOBIN A1C 17.6 % (4.8-6.0)
--- NOTE | 2019-04-06 14:31 | PROGRESS NOTE ---
DATE: 04/06/2019 SUBJECTIVE: Patient reports feeling fine. Less right face swelling. The patient reports being constipated for the last 2 days. OBJECTIVE: Vital Signs: Temperature 97.9 degrees, heart rate 76, respiratory rate 20, blood pressure 135/74, and O2 saturation 98% on room air. General: This is a 43-year-old male lying in bed in no acute distress. HEENT: Head is normocephalic, atraumatic. Extraocular movements are intact. Moderate amount of edema and tenderness in the right face better in comparing with yesterday. Neck: No JVD noted. No carotid bruits. No lymphadenopathy. No thyromegaly. Cardiovascular: S1, S2 heard. No murmurs, gallops, or rubs. Regular rate and rhythm. Respiratory: Clear bilaterally to auscultation. No work of breathing or using accessory muscles. Abdomen: Soft, nontender to palpation. Bowel sounds present. No organomegaly. Extremities: No clubbing, cyanosis, or edema. Peripheral pulses present in both legs. Neurological: Patient alert and oriented x3. Moves all 4 extremities. LABORATORY DATA: White cell count 15.96. Hemoglobin 13.6, hematocrit 40.3 and platelets 394,000 with BMP remarkable for potassium 3.3, and creatinine 0.6. ASSESSMENT AND PLAN: 1. Right facial cellulitis improving. We will continue with vancomycin, clindamycin and Zosyn. We will continue with same management. 2. Diabetes mellitus type 2. We will continue with sliding scale insulin. Accu-Chek before meals and also at bedtime. We are going to check an A1c as well. cc: Jhony Yee MD
[2019-04-06] MEDS: MIRALAX PO SCH ×2 (14:54→20:27)
[2019-04-06] MEDS: VANCOMYCIN 2,000 MG in NS 500 ML IV SCH (16:43)
[2019-04-06] MEDS: CELEXA PO SCH (20:27)
[2019-04-07] MEDS: ZOSYN 3.375 GM in NS 50 ML IV SCH ×4 (01:37→19:56)
[2019-04-07] MEDS: MORPHINE IV PRN ×3 (02:58→19:55)
[2019-04-07] MEDS: CLINDAMYCIN 900 MG/D5W 900 MG/50 ML IVPB IV SCH ×3 (02:59→20:42)
[2019-04-07] MEDS: VANCOMYCIN 2,000 MG in NS 500 ML IV SCH ×2 (04:14→16:53)
[2019-04-07] MEDS: HUMALOG SUBQ SCH ×4 (06:27→21:05)
[2019-04-07] MEDS ORDERED: INSULIN PEN NEEDLES ONE (06:27)
[2019-04-07 06:28] LABS: BASO# 0.03 X1000 (0.0-0.2); BASO% 0.3 % (0.0-0.8); EOS# 0.46 X1000 (0.0-0.7); EOS% 4.3 % (0.0-10.0); HEMATOCRIT 38.4 % (42.0-52.0); IMM GRAN# 0.02 X1000 (0.0-0.04); IMM GRAN% 0.2 % (0.0-0.5); LYMPH# 2.17 X1000 (1.2-3.4); LYMPH% 20.1 % (20.5-51.1); MCHC 33.9 g/dL (33-37); MCV 88.7 FL (81-99); MONO# 1.37 X1000 (0.11-0.59); MONO% 12.7 % (1.7-9.3); MPV 9.5 FL (7.4-10.4); NEUT# 6.77 X1000 (1.4-6.5); NEUT% 62.4 % (42.2-75.2); PLT 459 X1000 (130-400); RBC 4.33 XMIL (4.7-6.1); RDW 12.7 % (11.5-14.5); WBC 10.82 X1000 (4.8-10.8)
[2019-04-07] MEDS ORDERED: NOVOLOG MIX 70/30 SUBQ SCH (07:00)
[2019-04-07 07:06] LABS: POTASSIUM 4.5 mmol/L (3.5-5.1); SODIUM 134 mmol/L (136-145)
[2019-04-07 07:07] LABS: AGAP 10; BUN 9 mg/dL (8-22); CALCIUM 8.5 mg/dL (8.8-10.2); CHLORIDE 96 mmol/L (98-107); COSMO 283; CREATININE 0.7 mg/dL (0.7-1.2); ESTIMATED GFR > 60; GLUCOSE 379 mg/dL (70-104); TCO2 28 mmol/L (25-35)
[2019-04-07] MEDS: MIRALAX PO SCH ×2 (08:29→21:04)
[2019-04-07] MEDS ORDERED: TYLENOL PO PRN (10:12)
[2019-04-07] MEDS: TORADOL IV SCH ×3 (11:01→22:49)
--- NOTE | 2019-04-07 14:24 | PROGRESS NOTE ---
DATE: 04/07/2019 SUBJECTIVE: The patient reports feeling fine. There is less right face swelling noted. The patient reports no other complaints. OBJECTIVE: Vital Signs: Temperature 98.1 degrees, heart rate 69, respiratory rate 18, blood pressure 147/90, and O2 saturation 99% on room air. General Examination: This is a 43-year-old male lying in bed in no acute distress. HEENT: Head is normocephalic, atraumatic. Extraocular movements are intact with moderate amount of edema and tenderness in the right face that is definitely much better in comparing with admission. Cardiovascular: S1 and S2 heard. No murmurs, gallops, or rubs. Regular rate and rhythm. Respiratory: Clear bilaterally to auscultation. No work of breathing or using accessory muscles. Abdomen: Soft, nontender to palpation. Bowel sounds present. No organomegaly. Extremities: No clubbing, cyanosis, or edema. Peripheral pulses present in both legs. Neurological: Patient is alert and oriented x3. Moves all 4 extremities. LABORATORY DATA: White cell count 10.98, hemoglobin 31.0 hematocrit 38.4, and platelets 459,000. BMP is fine except glucose 379. ASSESSMENT AND PLAN: 1. Right facial cellulitis, that condition is improving. We will continue with vancomycin, clindamycin and Zosyn. His white cell count is finally back to normal. At this point, I prefer to keep him one more day with IV antibiotics and tomorrow he should be fine to be discharged. 2. Diabetes mellitus type 2. We will continue with the sliding scale insulin and his basal doses of NovoLog 70/30 will be increased from 60 to 70 b.i.d. Hemoglobin A1c 17.6 so definitely he needs much more insulin. 3. Disposition. I think if the patient clinically continues to improve and white cell count is back to normal, we will discharge this patient tomorrow. cc: Jhony Yee MD [facility]TD[facility]
[2019-04-07] MEDS: NOVOLOG MIX 70/30 SUBQ SCH (16:54)
[2019-04-07] MEDS: CELEXA PO SCH (21:04)
[2019-04-08] MEDS: ZOSYN 3.375 GM in NS 50 ML IV SCH ×2 (02:34→07:52)
[2019-04-08] MEDS: CLINDAMYCIN 900 MG/D5W 900 MG/50 ML IVPB IV SCH ×3 (02:35→11:48)
[2019-04-08] MEDS: VANCOMYCIN 2,000 MG in NS 500 ML IV SCH (03:46)
[2019-04-08] MEDS: TORADOL IV SCH ×2 (03:46→10:16)
[2019-04-08 06:24] LABS: BASO# 0.06 X1000 (0.0-0.2); BASO% 0.7 % (0.0-0.8); EOS# 0.57 X1000 (0.0-0.7); EOS% 6.8 % (0.0-10.0); HEMATOCRIT 38.7 % (42.0-52.0); HEMOGLOBIN 12.9 g/dL (14.0-18.0); IMM GRAN# 0.07 X1000 (0.0-0.04); IMM GRAN% 0.8 % (0.0-0.5); LYMPH# 1.98 X1000 (1.2-3.4); LYMPH% 23.7 % (20.5-51.1); MCH 29.8 PG (27-31); MCHC 33.3 g/dL (33-37); MCV 89.4 FL (81-99); MONO# 0.86 X1000 (0.11-0.59); MONO% 10.3 % (1.7-9.3); MPV 9.4 FL (7.4-10.4); NEUT# 4.81 X1000 (1.4-6.5); NEUT% 57.7 % (42.2-75.2); PLT 495 X1000 (130-400); RBC 4.33 XMIL (4.7-6.1); RDW 12.9 % (11.5-14.5); WBC 8.35 X1000 (4.8-10.8)
[2019-04-08] MEDS: HUMALOG SUBQ SCH ×2 (06:50→11:48)
[2019-04-08] MEDS: NOVOLOG MIX 70/30 SUBQ SCH (06:51)
[2019-04-08 07:13] LABS: AGAP 10; BUN 14 mg/dL (8-22); CALCIUM 8.5 mg/dL (8.8-10.2); CHLORIDE 102 mmol/L (98-107); COSMO 276; CREATININE 0.7 mg/dL (0.7-1.2); ESTIMATED GFR > 60; GLUCOSE 99 mg/dL (70-104); SODIUM 138 mmol/L (136-145); TCO2 26 mmol/L (25-35)
[2019-04-08 07:16] VITALS: BP 115/58
[2019-04-08] MEDS: MIRALAX PO SCH (08:00)
--- NOTE | 2019-04-08 14:26 | PROGRESS NOTE ---
DATE: 04/05/2019 SUBJECTIVE: The patient reports his right face is getting much better, now he thinks that he is able to eat. OBJECTIVE: Vital Signs: Temperature 98.3, heart rate 92, respiratory rate 18, blood pressure 146/75, and O2 saturation 96% on room air. General: This is a 43-year-old male lying in bed in no acute distress. HEENT: Moderate amount of edema and tenderness in the right face with extraocular movements intact. Neck: No JVD. Nontender. Cardiovascular: S1, S2 heard. No murmurs, gallops, or rubs. Regular rate and rhythm. Respiratory: Clear bilaterally to auscultation. No work of breathing. Not using accessory muscles. Abdomen: Soft. Nontender to palpation. Bowel sounds present. No organomegaly. Extremities: No clubbing, cyanosis, or edema. Peripheral pulses present in both legs. Neurological: Patient alert and oriented x3. Moves all four extremities. LABORATORY DATA: White cell count 20.51, hemoglobin 13.7, hematocrit 39.6, platelets 375,000. ASSESSMENT AND PLAN: 1. Right facial cellulitis. The patient is on vancomycin. Will add clindamycin and something for treatment of cellulitis. Blood cultures reveal preliminary positive rods, so we will continue with current medications. Will continue with intravenous fluids and pain medications as well. 2. Diabetes mellitus type 2. Will continue with sliding scale insulin and Accu-Chek before meals and also at bedtime. cc: Jhony Yee MD [facility]
--- NOTE | 2019-04-09 04:27 | DISCHARGE SUMMARY ---
ADMISSION DATE: 04/04/2019 DISCHARGE DATE: 04/08/2019 PRIMARY CARE PHYSICIAN: Dr. Devon Suarez. ADMISSION DIAGNOSES: 1. A right facial cellulitis. 2. Diabetes type 2. DISCHARGE DIAGNOSES: 1. Right facial cellulitis, improved. 2. Diabetes type 2. SUMMARY OF FINDINGS: This is a 43-year-old male who presented to the emergency department with a several-day history of worsening edema and pain in his right face. States his tooth broke off and he developed these symptoms. Had a maxillofacial imaging done which showed extensive cellulitis in the right face region. Due to his presenting symptoms, he will need admission. He was placed on IV antibiotics, pain control, pattern blood sugars with sliding scale insulin. He has improved on his IV antibiotics. His white count is back to normal. His hemoglobin A1c was 17.6 so he definitely needed an increase in his insulin. His basal dose of NovoLog 70/30 was increased from 60 to 70 units b.i.d. and it is now felt that he can safely be discharged home. DISCHARGE MEDICATIONS: Include Augmentin 875 mg p.o. q.12 hours #20 with no refills, Celexa 40 mg p.o. at bedtime #90 with no refills, doxycycline 100 mg p.o. daily #20 with no refills, ibuprofen 800 mg p.o. t.i.d. p.r.n. #30 with no refills, NovoLog mix 70/30 subcutaneous b.i.d. #5, insulin pen with 3 refills and Novolin R per sliding scale. FOLLOWUP: He will follow up with his primary care physician on 04/11/2019 at 3 p.m. and with oral facial surgeon, Dr. Lane, call their office for an appointment time. All discharge instructions were reviewed with the patient and he verbalized understanding. TIME SPENT: This is a 35 minute discharge. Dictated by HERI Valdez for Jhony Yee MD Addendum: Patient seen and examined by myself. Agree with HERI note. It reflects my assessment and plan. Patient is being discharged from hospital in stable condition and follow up with Dr. Lane within a week. cc: HERI Valdez MD [facility], DO William F. Littlejohn, MD [facility]
== END 2019-04-08 13:22 | disposition home or self-care (01) | DRG 603 ==
LOC: ED 19:07 → 4N 22:41 → SUATTDRO 22:41
PROVIDERS: ATTEND Internal Medicine
CPT/HCPCS: 70486; 70487; 80048; 80053; 80202; 82009; 82948; 83036; 83605; 85025; 87040; 96365; 96366; 96375; 99285; A9270; J1815; J1885; J2270; J2405; J2543; J3370; J7030; J7040; Q9967; XXXXX

== ENCOUNTER 2019-06-27 02:23 | Inpatient (IN) ==
[2019-06-27] MEDS ORDERED: HUMULIN R SUBQ ONE (02:49)
[2019-06-27] MEDS ORDERED: ZOFRAN IV ONE (02:49)
[2019-06-27] MEDS ORDERED: NS 1,000 ML IV ONE (02:49)
[2019-06-27 03:06] LABS: URINE SOURCE CLEAN CATCH
[2019-06-27 03:09] LABS: UR EPITHELIAL CELLS <10 /HPF (<10); URINE BACTERIA NEGATIVE /HPF; URINE RBC <10 /HPF (<10); URINE WBC <10 /HPF (<10)
[2019-06-27 03:10] LABS: BILIRUBIN URINE NEGATIVE (NEGATIVE); BLOOD URINE NEGATIVE (NEGATIVE); COLOR STRAW; GLUCOSE URINE >1000 mg/dL (NEGATIVE); KETONE URINE 80 mg/dL (NEGATIVE); LEUKOCYTES URINE NEGATIVE (NEGATIVE); NITRITE URINE NEGATIVE (NEGATIVE); PH URINE 5.5; PROTEIN URINE NEGATIVE (NEGATIVE); SP GRAVITY URINE 1.024; TURBIDITY URINE CLEAR (CLEAR); UROBILINOGEN URINE NORMAL (NORMAL)
[2019-06-27 03:11] LABS: BASO# 0.04 X1000 (0.0-0.2); BASO% 0.4 % (0.0-0.8); EOS# 0.09 X1000 (0.0-0.7); EOS% 0.9 % (0.0-10.0); HEMATOCRIT 48.9 % (42.0-52.0); HEMOGLOBIN 15.9 g/dL (14.0-18.0); IMM GRAN# 0.03 X1000 (0.0-0.04); IMM GRAN% 0.3 % (0.0-0.5); LYMPH# 1.83 X1000 (1.2-3.4); LYMPH% 18.4 % (20.5-51.1); MCH 30.7 PG (27-31); MCHC 32.5 g/dL (33-37); MCV 94.4 FL (81-99); MONO# 1.12 X1000 (0.11-0.59); MONO% 11.3 % (1.7-9.3); NEUT# 6.81 X1000 (1.4-6.5); NEUT% 68.7 % (42.2-75.2); PLT 536 X1000 (130-400); RBC 5.18 XMIL (4.7-6.1); WBC 9.92 X1000 (4.8-10.8)
[2019-06-27 03:30] LABS: ALLEN TEST YES; BE -16.5 mmoll (-3.0-3.0); BLOOD TYPE ARTERIAL; HCO3-(ACT) 11.9 mmoll (20.0-26.0); METHB 1.1 % (0.0-1.5); O2HB 94.1 % (95.0-99.0); PCO2(98.6) 29 mmHg (35-45); PO2(98.6) 94 mmHg (60-100); SAMPLE BLOOD; THB 16.6 g/dL (11.5-17.4)
[2019-06-27 03:31] LABS: MODALITY ROOM AIR; pH(98.6) 7.17 (7.35-7.45)
[2019-06-27 04:02] LABS: AGAP 33; ALB/GLOB RATIO 1.2; ALBUMIN 4.1 g/dL (3.5-5.0); ALKALINE PHOSPHATASE 299 U/L (32-122); BUN 33 mg/dL (8-22); CALCIUM 9.8 mg/dL (8.8-10.2); CHLORIDE 76 mmol/L (98-107); COSMO 297; CREATININE 1.1 mg/dL (0.7-1.2); ESTIMATED GFR > 60; GOT 129 U/L (10-34); GPT 99 U/L (10-44); TCO2 10 mmol/L (25-35); TOTAL BILIRUBIN 0.52 mg/dL (0.20-1.00); TOTAL PROTEIN 7.6 g/dL (6.3-8.3)
[2019-06-27 04:03] LABS: POTASSIUM 6.3 mmol/L (3.5-5.1); SODIUM 118 mmol/L (136-145)
[2019-06-27 04:04] LABS: GLUCOSE 1036 mg/dL (70-104)
--- NOTE | 2019-06-27 04:17 | PROVIDER DOCUMENTATION ---
HPI-General Adult - General Chief Complaint: High Blood Sugar Stated Complaint: DIABETIC ISSUES Time Seen by Provider: 06/27/19 02:39 Source: patient Allergies/Adverse Reactions: Patient Allergies Allergy/AdvReac Type Severity Reaction Status Date / Time No Known Allergies Allergy Verified 04/04/19 20:34 Home Medications: Home Medication List Medication Instructions Recorded Confirmed Last Taken Type Insulin Regular, Human [Novolin R] 100 unit SQ DIRECTED 12/06/18 04/04/19 Unknown History Amoxicillin/Pot Clavulanate 875 mg PO Q12HR #20 tab 04/08/19 Unknown Rx [Augmentin] Citalopram [Celexa] 40 mg PO HS #90 tab 04/08/19 Unknown Rx Doxycycline 100 mg PO DAILY #20 tab 04/08/19 Unknown Rx Ibuprofen 800 mg PO TID PRN PRN #30 tab 04/08/19 Unknown Rx Insulin Novolog 70/30 [Novolog Mix 70 unit SUBQ BID #5 insuln.pen 04/08/19 Unknown Rx 70/30] - History of Present Illness -Gen Adult Nature of Presenting Problems: Pt presents with hyperglycemia, pt is a type I DM, ran out of his insulin a couple of days ago, now with polyuria and polydypsia, pt reports meth use in the last couple of days, pt denies f/c, murphy, cp, sob, cough, pt has ap and n/v, pt is lying in bed in no acute distress. Location of Pain/Injury: reports: abdomen Pain Radiation: reports: no radiation Quality of Pain: reports: cramping Severity: reports: moderate Onset/Duration: reports: 2 days ago Timing: reports: still present Context/Activities at Onset: reports: none Modifying Factors: improves with: nothing Associated Symptoms: reports: nausea, vomiting Similar Symptoms Previously?: Yes Recently seen or treated by another doctor?: No Review of Systems - Adult - REVIEW OF SYSTEMS - ADULT Constitutional: reports: no symptoms reported Eyes: reports: no symptoms reported Ears, Nose, Mouth & Throat: reports: no symptoms reported Cardiovascular: reports: no symptoms reported Respiratory: reports: no symptoms reported Gastrointestinal: reports: see HPI Genitourinary: reports: no symptoms reported Musculoskeletal: reports: no symptoms reported Integumentary: reports: no symptoms reported Neurological: reports: no symptoms reported Psychiatric: reports: no symptoms reported Endocrine: reports: see HPI Hematologic/Lymphatic: reports: no symptoms reported Allergic/Immunologic: reports: no symptoms reported All Other Systems: Reviewed and Negative Past History - Adult - PAST MEDICAL HISTORY-ADULT Review of Records: reports: Old Records Reviewed, Nursing Assessment Review, Medications Reviewed, Social history reviewed & non-contributory. Major Childhood Illnesses: reports: denies history Cardiovascular: reports: denies history Respiratory: reports: denies history Gastrointestinal: reports: denies history Obstetrical/Gynecological: reports: denies history Genitourinary: reports: denies history Musculoskeletal: reports: denies history Neurological: reports: denies history Psychiatric: reports: anxiety Endocrine/Immune: reports: Diabetes Other Conditions: reports: denies history - PRIOR SURGERIES/PROCEDURES Surgical/Procedure History: reports: none - PRIOR HOSPITALIZATIONS Prior Hospitalizations: reports: none - IMMUNIZATION STATUS Childhood Immunizations: See Nurse Assessment Flu Vaccine: See Nurse Assessment - FAMILY HISTORY Family History: reviewed, not pertinent Physical Exam-General - PHYSICAL EXAM-ADULT Initial Vital Signs Reviewed: Yes - CONSTITUTIONAL General Appearance: appears well - EYES Eyes: PERRL/EOMI - HEAD, EARS, NOSE, MOUTH & THROAT HENMT: normocephalic/atraumatic - NECK Neck: normal inspection - RESPIRATORY Respiratory: lungs clear, no accessory muscle use, respiratory distress - CARDIOVASCULAR Cardiovascular: tachycardia - GASTROINTESTINAL (ABDOMEN) Abdominal Exam: non tender, soft. negative: tenderness - LYMPHATIC Lymphatic: no adenopathy - MUSCULOSKELETAL Back Exam: normal inspection Extremity: normal range of motion - SKIN Integumentary: normal color - NEUROLOGIC Neurologic: grossly normal - PSYCHIATRIC Psych/Mental Status: normal mood/affect Progress - PLAN OF CARE/RESULTS Progress/Plan/Lab Results: Vital Signs - 8 hr 06/27/19 02:25 Temperature 97.5 F L Pulse Rate 114 H Respiratory Rate 20 Blood Pressure 115/75 O2 Sat by Pulse Oximetry 100 Laboratory Results - last 24 hr 06/27/19 06/27/19 06/27/19 02:52 02:56 02:56 WBC 9.92 RBC 5.18 Hgb 15.9 Hct 48.9 MCV 94.4 MCH 30.7 MCHC 32.5 L RDW Std Deviation 13.0 Plt Count 536 H MPV 10.0 Immature Gran % (Auto) 0.3 Neut % (Auto) 68.7 Lymph % (Auto) 18.4 L Ray % (Auto) 11.3 H Eos % (Auto) 0.9 Baso % (Auto) 0.4 Immature Gran # (Auto) 0.03 Neut # (Auto) 6.81 H Lymph # (Auto) 1.83 Ray # (Auto) 1.12 H Eos # (Auto) 0.09 Baso # (Auto) 0.04 Specimen Type Sample Site pH pCO2 pO2 HCO3 Base Excess Oxyhemoglobin ABG O2 Sat (Calculated) ABG O2 Saturation ABG Carboxyhemoglobin ABG Methemoglobin Mitchel Test A-a O2 Difference Total Hemoglobin Lactate Blood Gas Modality FiO2 % Sodium 118 L* Potassium 6.3 H* Chloride 76 L Carbon Dioxide 10 L Anion Gap 33 BUN 33 H Creatinine 1.1 Estimated GFR/1.73 m2 > 60 BUN/Creatinine Ratio 30 Glucose 1036 H* POC Glucose Calculated Osmolality 297 Calcium 9.8 Total Bilirubin 0.52 AST 129 H ALT 99 H Alkaline Phosphatase 299 H Total Protein 7.6 Albumin 4.1 Globulin 3.5 Albumin/Globulin Ratio 1.2 Plasma Lactate Urine Source CLEAN CATCH Urine Color STRAW Urine Turbidity CLEAR Urine pH 5.5 Ur Specific Coram 1.024 Urine Protein NEGATIVE Ur Glucose (Stick) >1000 A Ur Ketones (Stick) 80 A Urine Blood NEGATIVE Urine Nitrite NEGATIVE Urine Bilirubin NEGATIVE Urobilinogen Dipstick NORMAL Urine Leukocytes NEGATIVE Urine WBC (Auto) <10 Urine RBC (Auto) <10 U Epithel Cells (Auto) <10 Urine Bacteria (Auto) NEGATIVE 06/27/19 06/27/19 06/27/19 02:56 03:26 03:32 WBC RBC Hgb Hct MCV MCH MCHC RDW Std Deviation Plt Count MPV Immature Gran % (Auto) Neut % (Auto) Lymph % (Auto) Ray % (Auto) Eos % (Auto) Baso % (Auto) Immature Gran # (Auto) Neut # (Auto) Lymph # (Auto) Ray # (Auto) Eos # (Auto) Baso # (Auto) Specimen Type ARTERIAL Sample Site R RADIAL pH 7.17 L* pCO2 29 L pO2 94 HCO3 11.9 L Base Excess -16.5 L Oxyhemoglobin 94.1 L ABG O2 Sat (Calculated) 22.0 ABG O2 Saturation 97.0 ABG Carboxyhemoglobin 1.80 ABG Methemoglobin 1.1 Mitchel Test YES A-a O2 Difference 19.0 Total Hemoglobin 16.6 Lactate 2.70 H Blood Gas Modality ROOM AIR FiO2 % 21.0 Sodium Potassium Chloride Carbon Dioxide Anion Gap BUN Creatinine Estimated GFR/1.73 m2 BUN/Creatinine Ratio Glucose POC Glucose 500 H D Calculated Osmolality Calcium Total Bilirubin AST ALT Alkaline Phosphatase Total Protein Albumin Globulin Albumin/Globulin Ratio Plasma Lactate 1.9 Urine Source Urine Color Urine Turbidity Urine pH Ur Specific Coram Urine Protein Ur Glucose (Stick) Ur Ketones (Stick) Urine Blood Urine Nitrite Urine Bilirubin Urobilinogen Dipstick Urine Leukocytes Urine WBC (Auto) Urine RBC (Auto) U Epithel Cells (Auto) Urine Bacteria (Auto) Orders Category Date Time Status Nursing- Obtain EKG ONCE Care 06/27/19 02:49 Active ABG [RESP] Routine Lab 06/27/19 03:26 Completed CBC WITH ELECTRONIC DIFF [HEME] Stat Lab 06/27/19 02:56 Completed COMPREHENSIVE METABOLIC PANEL [CHEM] Stat Lab 06/27/19 02:56 Completed LACTATE, PLASMA [CHEM] Stat Lab 06/27/19 02:56 Completed URINALYSIS W/POSS RFLX CULT [URINALYSIS] Stat Lab 06/27/19 02:52 Completed 0.9% Sodium Chloride Inj [Ns] 1,000 ml Med 06/27/19 02:49 Discontinued IV 999 mls/hr Insulin Human Regular [Humulin R] Med 06/27/19 02:49 Discontinued 10 unit SUBQ NOW ONE Ondansetron [Zofran] Med 06/27/19 02:49 Discontinued 8 mg IV NOW ONE EKG [EKG] Stat Ther 06/27/19 02:49 Ordered Result Diagrams: 06/27/19 02:56 06/27/19 02:56 Departure - Departure Date of Disposition Decision: 06/27/19 Time of Disposition Decision: 04:17 DIAGNOSIS: DKA (diabetic ketoacidoses) Qualifiers: Diabetes mellitus type: type 1 Diabetes mellitus complication detail: without coma Qualified Code(s): E10.10 - Type 1 diabetes mellitus with ketoacidosis without coma Disposition: ADMITTED INPATIENT 09 Certified Medical Emergency: Emergent Condition: Stable Referrals and Follow-Ups: None,PCP [Primary Care Provider] - - Critical Care Note This patient required my direct & personal management of CC.: Yes Total Time (mins): 36 Critical Care Statement: This patient required my direct personal management to treat or rule out processes, the absence of which, could potentiallly result in sudden, clinically significant life or limb threatening deterioration. Attestation - Physician/ DEION Attestation Patient care was provided by Advanced Practice Provider:: No The physician spent face to face time with patient:: Yes Advanced Practice Provider documentation review:: Supervising physician onsite and consulted in the evaluation and care of this patient. The physician did have a face to face encounter with the patient.
[2019-06-27] MEDS ORDERED: NICODERM PATCH TD PRN (05:15)
--- NOTE | 2019-06-27 05:23 | EKG Report ---
Test Performed on : 06/27/2019 02:55:13 AM Test Reason : weakness Blood Pressure : / mmHG Vent. Rate : 109 BPM Atrial Rate : 109 BPM P-R Int : 130 ms QRS Dur : 096 ms QT Int : 336 ms P-R-T Axes : 079 -40 065 degrees QTc Int : 452 ms Sinus tachycardia. Biatrial enlargement Left axis deviation Pulmonary disease pattern Incomplete right bundle branch block Septal infarct , age undetermined Abnormal ECG When compared with ECG of 06-DEC-2018 17:38, Incomplete right bundle branch block is now present Septal infarct is now present Unconfirmed Result
[2019-06-27] MEDS ORDERED: POTASSIUM CHLORIDE 20% LIQUID PO PRN (06:15)
[2019-06-27] MEDS ORDERED: D50W SYRINGE IV PRN ×2 (06:15→08:32)
[2019-06-27] MEDS ORDERED: POTASSIUM CHLORIDE 40 MEQ/SWI 40 MEQ/100 ML IVPB IV PRN (06:15)
[2019-06-27] MEDS ORDERED: MAGNESIUM SULFATE 2 GM/S.W.I. 2 GM/50 ML IVPB IV PRN ×2 (06:15→08:32)
[2019-06-27] MEDS ORDERED: POTASSIUM CHLORIDE 20 MEQ/SWI 20 MEQ/100 ML IVPB IV PRN (06:15)
[2019-06-27] MEDS ORDERED: SODIUM PHOSPHATE 30 MMOL in D5W 250 ML IV PRN (06:15)
[2019-06-27] MEDS ORDERED: HUMULIN R 100 UNIT in NS 100 ML IV SCH ×2 (06:15→08:45)
[2019-06-27] MEDS ORDERED: SODIUM BICARBONATE 8.4% 100 MEQ in STERILE WATER INJ. 500 ML IV PRN ×2 (06:15→08:32)
[2019-06-27] MEDS ORDERED: NS 1,000 ML ONE (06:18)
[2019-06-27] MEDS ORDERED: D5 1/2 NS + KCL 10 MEQ 1,000 ML IV SCH (06:30)
[2019-06-27] MEDS ORDERED: TYLENOL PO PRN (06:30)
[2019-06-27] MEDS ORDERED: ZOFRAN PO PRN (06:30)
[2019-06-27] MEDS ORDERED: ZOFRAN IV PRN (06:30)
[2019-06-27] MEDS: NS 1,000 ML IV SCH ×3 (06:30→08:30)
--- NOTE | 2019-06-27 06:35 | HISTORY AND PHYSICAL ---
CHIEF COMPLAINT: I think I am in DKA. HISTORY OF PRESENT ILLNESS: Patient is a 44-year-old male with history of diabetes and amphetamine use. He reports he ran out of his insulin 2 to 3 days ago, and could not afford more. Since then, he has had increasing fatigue, polydipsia, and polyuria. Today, he began having some nausea as well without vomiting. He thought this felt like his previous episodes of DKA so he came to the hospital. On evaluation here, he did appear to be in DKA. He is admitted for further treatment, He endorses a little bit of nonproductive cough, but no dyspnea, dizziness, fever, chills, or dysuria. REVIEW OF SYSTEMS: Twelve point review of systems negative except as per interval history. PAST MEDICAL HISTORY: Diabetes, amphetamine use, and noncompliance. PAST SURGICAL HISTORY: Right knee ACL repair. SOCIAL HISTORY: Continues smoking. Denies alcohol use. Intermittent methamphetamine use which he shoots up. FAMILY HISTORY: Parents are both alive. Mother with bipolar disorder. Father in good health as far as he knows. ALLERGIES: No known drug allergies. LABORATORY: CBC unremarkable. ABG with pH 7.17, pCO2 29, PO2 94 on room air. Sodium 118, potassium 6.3, bicarb 10, gap 33, BUN 33 as well. Creatinine 1.1. Glucose 1036, bilirubin 0.52, AST 129, ALT 99, and alkaline phosphatase 299. Urinalysis with greater than 1000 glucose and 80 ketones. DISCHARGE VITAL SIGNS: Temperature 97.5 degrees, pulse 114, respirations 20, blood pressure 115/75, and O2 saturation 100% on room air. PHYSICAL EXAMINATION: GENERAL: No acute distress. VITALS: As above. HEENT: Normocephalic, atraumatic. Dry mucous membranes. No cervical adenopathy. CARDIOVASCULAR: Mildly tachycardic, but regular. No murmurs noted. PULMONARY: Clear to auscultation bilaterally. No wheezing, rales, or rhonchi. ABDOMEN: Soft, nontender, and nondistended. Bowel sounds positive. EXTREMITIES: Peripheral pulses are intact. No clubbing or cyanosis. NEUROLOGIC: Cranial nerves grossly intact. No focal deficits identified. PSYCHIATRIC: Essentially normal mood and affect. Sleepy but easily arousable. Oriented x3. SKIN: No new appearing rashes or lesions. Previous facial cellulitis appears to be resolved. ASSESSMENT AND PLAN: 1. DKA. Patient with marked hyperglycemia with gap acidosis. We will place on insulin drip with DKA protocol. Serial labs and ABGs, and monitor closely in ICU. Potassium is currently moderately elevated but, should come down with insulin drip. The patient advised on the importance of keeping on his insulin. We will continue aggressive IV fluid resuscitation as well. 2. Hyperkalemia likely due to DKA. Monitor closely, but no need for acute intervention aside from treatment of DKA as above. 3. Tobacco abuse. Patient has been offered nicotine patch, and counseled on cessation. 4. Transaminitis. Bilirubin normal but AST, ALT and alkaline phosphatase mildly elevated likely related to DKA. We will check hepatitis panel given his history of intermittent IV drug use. 5. Methamphetamine use. Patient denies other illicit drugs. States that he always uses clean needles.
--- NOTE | 2019-06-27 06:43 | Diag Imaging Result Doc PS360 ---
CHEST-PORTABLE - 06/27/2019 INDICATION: cough COMPARISON: 12/06/2018 FINDINGS: There are stable small bilateral scattered pulmonary nodules. No infiltrates or edema. No pneumothorax or pleural effusion. Heart size is normal. IMPRESSION: Stable bilateral pulmonary nodules. Electronically signed by Tony Barbour 06/27/2019 6:41 AM
[2019-06-27] MEDS ORDERED: NS 1,000 ML IV SCH ×2 (07:00→08:45)
[2019-06-27] MEDS ORDERED: D5 NS 1,000 ML IV PRN (08:32)
[2019-06-27] MEDS ORDERED: POTASSIUM CHLORIDE 40 MEQ in NS 250 ML IV PRN (08:32)
[2019-06-27] MEDS ORDERED: POTASSIUM CHLORIDE 20 MEQ in NS 100 ML IV PRN (08:32)
[2019-06-27] MEDS ORDERED: COMPAZINE PO PRN (08:32)
[2019-06-27 09:23] LABS: ALLEN TEST YES; BE -5.8 mmoll (-3.0-3.0); BLOOD TYPE ARTERIAL; HCO3-(ACT) 20.3 mmoll (20.0-26.0); METHB 0.9 % (0.0-1.5); O2(CT) 22.2 mL/dL (15.0-23.0); O2HB 95.4 % (95.0-99.0); PCO2(98.6) 37 mmHg (35-45); PO2(98.6) 92 mmHg (60-100); SAMPLE BLOOD; SAO2 97.6 % (95.0-100.0); THB 16.5 g/dL (11.5-17.4); pH(98.6) 7.33 (7.35-7.45)
[2019-06-27 09:24] LABS: MODALITY ROOM AIR
[2019-06-27 09:48] LABS: AGAP 22; BUN 34 mg/dL (8-22); CALCIUM 9.6 mg/dL (8.8-10.2); CHLORIDE 87 mmol/L (98-107); COSMO 279; CREATININE 1.1 mg/dL (0.7-1.2); ESTIMATED GFR > 60; GLUCOSE 453 mg/dL (70-104); PHOSPHORUS 5.8 mg/dL (2.7-4.5); POTASSIUM 4.6 mmol/L (3.5-5.1); SODIUM 125 mmol/L (136-145); TCO2 16 mmol/L (25-35)
[2019-06-27 10:13] LABS: UR AMPHETAMINES QUAL PRESUMPTIVE POSITIVE (NONE DETECT); UR BARBITUATES QUAL NONE DETECTED (NONE DETECT); UR BENZODIAZEPIN QUAL NONE DETECTED (NONE DETECT); UR CANNABINOIDS QUAL NONE DETECTED (NONE DETECT); UR COCAINE QUAL NONE DETECTED (NONE DETECT); UR METHADONE QUAL NONE DETECTED (NONE DETECT); UR OPIATES QUAL NONE DETECTED (NONE DETECT); UR OXYCODONE QUAL NONE DETECTED (NONE DETECT); UR PCP QUAL NONE DETECTED (NONE DETECT)
[2019-06-27] MEDS: POTASSIUM CHLORIDE 10% LIQUID PO PRN ×2 (10:24→15:06)
[2019-06-27 13:15] LABS: ALLEN TEST YES; BE -4.4 mmoll (-3.0-3.0); BLOOD TYPE ARTERIAL; HCO3-(ACT) 21.4 mmoll (20.0-26.0); METHB 0.8 % (0.0-1.5); O2(CT) 20.7 mL/dL (15.0-23.0); O2HB 95.6 % (95.0-99.0); PCO2(98.6) 39 mmHg (35-45); PO2(98.6) 91 mmHg (60-100); SAMPLE BLOOD; SAO2 97.5 % (95.0-100.0); THB 15.4 g/dL (11.5-17.4); pH(98.6) 7.34 (7.35-7.45)
[2019-06-27 13:16] LABS: MODALITY ROOM AIR
--- NOTE | 2019-06-27 14:24 | PROGRESS NOTE ---
DATE: 06/27/2019 INTERVAL HISTORY: Mr. Melendez was admitted for diabetic ketoacidosis, was started on insulin drip and intravenous fluid resuscitation following which his electrolytes have been improving. SUBJECTIVE: He is doing much better. He is hungry. We discussed about Music Box Mechanic consult for helping him acquire insulin. We also discussed about being compliant with insulin. VITAL SIGNS: He has been afebrile. Temperature of 97.3 degrees. Not tachycardic. Pulse of 30, tachycardic with pulse of 108 respiratory rate 16, blood pressure 116/85. He is saturating 98% on room air. PHYSICAL EXAMINATION: He does not appear in any acute distress.HEENT: Oral cavity is dry. Lungs: Air entry bilaterally equal. No wheeze, rhonchi, crackles. Cardiovascular: S1, S2 normal. No murmur or gallop. Abdomen: Soft, nontender. Extremity: No lower extremity edema, Neurologic: He is alert and oriented x3. LABS: Suggestive of hyperglycemia, increased anion gap acidosis which is improving, hyponatremia, hypochloremia, elevated creatinine which all have been improving. MICROBIOLOGY: No positive data. IMAGING: Chest x-ray suggests multiple pulmonary nodules. ASSESSMENT AND PLAN: 1. Diabetic ketoacidosis because of not taking his routine insulin for more than 48 hours due to cost issues and he ran out of it. Continue insulin drip and intravenous fluids according to DKA protocol. In future I would start him on NPH 70/ 30, 30 units t.i.d., which is his home medication. Music Box Mechanic has been consulted for help with his insulin. 2. Tobacco abuse. He was counseled about cessation. I explained to him about lung findings of pulmonary nodules and advise him outpatient follow-up. 3. Transaminitis likely in the setting of diabetic ketoacidosis. I will continue to monitor. 4. He was also counseled about not using recreational substances like amphetamine. 5. Plan of care discussed with him. His questions have been answered. cc: Nicolás Laureano MD
[2019-06-27 14:41] LABS: AGAP 13; BUN 26 mg/dL (8-22); CALCIUM 8.1 mg/dL (8.8-10.2); CHLORIDE 99 mmol/L (98-107); COSMO 275; CREATININE 0.8 mg/dL (0.7-1.2); ESTIMATED GFR > 60; GLUCOSE 170 mg/dL (70-104); PHOSPHORUS 3.9 mg/dL (2.7-4.5); POTASSIUM 4.8 mmol/L (3.5-5.1); SODIUM 133 mmol/L (136-145); TCO2 21 mmol/L (25-35)
[2019-06-27] MEDS ORDERED: HUMULIN 70/30 SUBQ SCH (15:45)
[2019-06-27] MEDS: HUMALOG SUBQ SCH ×2 (16:22→20:58)
[2019-06-27] MEDS: HUMULIN 70/30 SUBQ SCH (16:45)
[2019-06-28 05:42] LABS: BASO# 0.03 X1000 (0.0-0.2); BASO% 0.4 % (0.0-0.8); EOS# 0.26 X1000 (0.0-0.7); EOS% 3.1 % (0.0-10.0); HEMATOCRIT 42.5 % (42.0-52.0); HEMOGLOBIN 14.8 g/dL (14.0-18.0); IMM GRAN# 0.02 X1000 (0.0-0.04); IMM GRAN% 0.2 % (0.0-0.5); LYMPH# 1.94 X1000 (1.2-3.4); LYMPH% 23.4 % (20.5-51.1); MCH 30.8 PG (27-31); MCHC 34.8 g/dL (33-37); MCV 88.5 FL (81-99); MONO# 1.03 X1000 (0.11-0.59); MONO% 12.4 % (1.7-9.3); NEUT% 60.5 % (42.2-75.2); PLT 366 X1000 (130-400); RDW 13.3 % (11.5-14.5); WBC 8.28 X1000 (4.8-10.8)
[2019-06-28] MEDS: HUMULIN 70/30 SUBQ SCH (06:09)
[2019-06-28] MEDS: HUMALOG SUBQ SCH (06:10)
[2019-06-28 06:30] LABS: AGAP 13; ALB/GLOB RATIO 1.3; ALBUMIN 3.5 g/dL (3.5-5.0); ALKALINE PHOSPHATASE 205 U/L (32-122); BUN 20 mg/dL (8-22); CALCIUM 8.6 mg/dL (8.8-10.2); CHLORIDE 101 mmol/L (98-107); COSMO 279; CREATININE 0.8 mg/dL (0.7-1.2); ESTIMATED GFR > 60; GLUCOSE 180 mg/dL (70-104); GOT 53 U/L (10-34); GPT 57 U/L (10-44); POTASSIUM 4.4 mmol/L (3.5-5.1); SODIUM 136 mmol/L (136-145); TCO2 22 mmol/L (25-35); TOTAL BILIRUBIN 0.37 mg/dL (0.20-1.00); TOTAL PROTEIN 6.1 g/dL (6.3-8.3)
--- NOTE | 2019-06-28 07:53 | EKG Report ---
Test Performed on : 06/28/2019 06:50:42 AM Test Reason : dka Blood Pressure : / mmHG Vent. Rate : 070 BPM Atrial Rate : 070 BPM P-R Int : 136 ms QRS Dur : 086 ms QT Int : 420 ms P-R-T Axes : 065 007 066 degrees QTc Int : 453 ms Normal sinus rhythm. Septal infarct (cited on or before 27-JUN-2019) Abnormal ECG When compared with ECG of 27-JUN-2019 02:55, (Unconfirmed) Vent. rate has decreased BY 39 BPM Incomplete right bundle branch block is no longer present Confirmed by Art WATTS, David Pratt ([id number]) on 06/28/2019 9:07:04 AM
[2019-06-28 09:22] VITALS: BP 122/76
[2019-06-28 12:45] LABS: HEPATITIS PROFILE ACUTE SEE COMMENTS
--- NOTE | 2019-06-29 07:10 | DISCHARGE SUMMARY ---
ADMISSION DATE: 06/27/2019 DISCHARGE DATE: 06/28/2019 DISCHARGE DISPOSITION: Home. DISCHARGE CONDITION: Hemodynamically stable. His blood sugars are well controlled on his home regimen of insulin. Measurement Supervisor has been consulted about helping him with cost of his insulin and he was provided information about lung doctor followup for his lung nodule detected in November. DISCHARGE DIAGNOSES: 1. Diabetic ketoacidosis. 2. Tobacco use. 3. Transaminitis in the setting of diabetic ketoacidosis. 4. Amphetamine use. 5. Lung nodules diagnosed in November 2018, pending workup. 6. Anxiety. 7. Noncompliance. DISCHARGE MEDICATIONS: 1. Insulin NovoLog 70/30, 30 units subcu 3 times a day with meals. 2. Citalopram 40 mg at nighttime. CONSULTATIONS DURING HOSPITALIZATION: None. VITALS: Temperature 97.5 degrees, pulse 70, respiratory 12, blood pressure 130/78, saturating 98% room air. PHYSICAL EXAMINATION: GENERAL: Does not appear in any acute distress. HEENT: Oral cavity is moist. LUNGS: Bilateral air entry. No wheezing, rales or crackles. CARDIOVASCULAR: S1, S2 normal. No murmurs, rubs or gallops. ABDOMEN: Soft, nontender. No lower extremity edema. He is alert and oriented x3. SIGNIFICANT LABS DURING HOSPITAL ADMISSION AND DISCHARGE: WBC 8.2, hemoglobin 14.8. Sed rate 366. His pH on admission was 7.17 which improved to 7.34. His bicarbonate was 11 on admission which improved to 21. Chemistry: Sodium 136, potassium 4.4, BUN 20, creatinine 0.8, creatinine 0.8, . AST 53, ALT 57, alkaline phosphatase 205. Urine toxicology is positive for amphetamine. SIGNIFICANT IMAGING DURING HOSPITAL ADMISSION: Chest x-ray has stable bilateral pulmonary nodules. HOSPITAL COURSE SUMMARY: Mr. Melendez is a 44-year-old man with a past medical history of insulin-dependent diabetes mellitus who ran out of insulin about 3 days ago and could not afford it any more. Since then, he started developing fatigue, polydipsia, polyuria. On the day of arrival he also experienced nausea and vomiting. He felt as if he were in DKA and that is why he came to the hospital. In the emergency room, he was found to be indeed in DKA with blood sugar more than 1000 and pH of 7.17. He was started on fluid resuscitation and insulin drip according to DKA protocol on which he improved. Later on, his insulin regimen was changed to his home insulin regimen which is NPH 70/30 three times a day and his sugars are well controlled. At the time of discharge, he was provided detailed instructions about not using amphetamines in the future. He was also educated about his lung nodules which will require followup and possible biopsy so the lung doctor's office information was provided to him. More than 30 minutes spent on discharge of this patient. Measurement Supervisor had been also consulted to help him acquire insulin and help with its cost. cc: Nicolás Laureano MD MTDD
== END 2019-06-28 10:50 | disposition home or self-care (01) | DRG 639 ==
LOC: ED 02:23 → SUATTDRO 04:49 → EDIPHOLD 04:49 → SUPCPDRO 04:49 → ICU 12:45
PROVIDERS: ATTEND Internal Medicine